=== PATIENT | female | born 1985 | race Caucasian/White ===

== ENCOUNTER 2018-04-19 20:22 | Emergency (ER) | END 2018-04-19 22:27 | disposition home or self-care (01) ==

== ENCOUNTER 2018-11-18 11:23 | Emergency (ER) | payer MEDICAID ==
[~2018-11-18] VITALS: Wt 90.0 kg
[~2018-11-18 11:23] MED LIST: IBUP-1542 PO; LORA-441 PO; MAG-19 PO; ONDA4TAB14 PO; PT DENIES; RANI150T35 PO
[2018-11-18 11:26] VITALS: BP 132/69; PULSE 93; RESP 18
[2018-11-18] MEDS ORDERED: FAMOTIDINE 20 MG TAB PO STA (11:59)
[2018-11-18] MEDS ORDERED: LIDOCAINE/MYLANTA 40 ML BTL PO STA (11:59)
--- NOTE | 2018-11-18 12:07 | ERD ---
ER Documentation Chief Complaint Chief Complaint AP X 5 DAYS HPI This is a 33-year-old female who presents to the emergency room with complaint of abdominal pain and throat pain times 5 days. Denies fever, no cough, no chest pain, no shortness of breath, no melena, no hematemesis. States pain is worse with eating and feels like the pain is up in her throat where she feels like there is something stuck in her throat. He currently has no pain and states "I do not have pain because I have not eaten anything today." Get some relief from the epigastric pain with drinking water. No history of the same, no surgical history. ROS All systems reviewed and are negative except as per history of present illness. Medications Home Meds Active Scripts Omeprazole* (Omeprazole*) 40 Mg Capsule.dr, 40 MG PO DAILY, #30 CAP Prov:TRUE ORTIZ NP 11/18/18 Ondansetron (Ondansetron Odt) 4 Mg Tab.rapdis, 4 MG PO Q6H PRN for NAUSEA AND/OR VOMITING, #20 TAB Prov:DIANA AWAD NP 04/19/18 Ranitidine Hcl* (Zantac*) 150 Mg Tablet, 150 MG PO BID PRN for EPIGASTRIC PAIN, #30 TAB Prov:DIANA AWAD NP 04/19/18 Magaldrate/Simethicone* (Mylanta*) 355 Ml Susp, 30 ML PO QID PRN for GASTROINTESTINAL UPSET, #1 BOTTLE Prov:DIANA AWAD NP 04/19/18 Lorazepam* (Ativan*) 0.5 Mg Tablet, 0.5 MG PO Q8, #7 TAB Prov:BERNADETTE ADAMS PA-C 07/09/16 Ibuprofen* (Motrin*) 600 Mg Tab, 600 MG PO Q6, #30 TAB Prov:BERNADETTE ADAMS PA-C 07/09/16 Reported Medications [Pt Denies] No Conflict Check 02/26/11 Allergies Allergies: Coded Allergies: Penicillins (Verified Allergy, Unknown, 02/26/11) PMhx/Soc History of Surgery: No Anesthesia Reaction: No Hx Neurological Disorder: No Hx Respiratory Disorders: No Hx Cardiac Disorders: No Hx Psychiatric Problems: No Hx Miscellaneous Medical Probl: Yes Hx Alcohol Use: Yes (occasional) Hx Substance Use: No Hx Tobacco Use: No FmHx Family History: No diabetes, No coronary disease, No other Physical Exam Vitals Vital Signs Date Temp Pulse Resp B/P (MAP) Pulse Ox O2 O2 Flow FiO2 Time Delivery Rate 11/18/18 98.1 93 18 132/69 99 11:26 (90) Physical Exam Const: No acute distress Head: Atraumatic Eyes: Normal Conjunctiva, PERRL ENT: Normal External Ears, Nose and Mouth. Pharynx pink, no lesions, no exudates. Neck: Full range of motion. No meningismus. Resp: Clear to auscultation bilaterally Cardio: Regular rate and rhythm, no murmurs Abd: Soft, non distended. Normal bowel sounds. +[place]rios Skin: No petechiae or rashes Back: No midline or flank tenderness Ext: No cyanosis, or edema Neur: Awake and alert Psych: Normal Mood and Affect Result Diagram: 11/18/18 1225 11/18/18 1225 Results 24 hrs Laboratory Tests Test 11/18/18 12:24 11/18/18 12:25 POC Beta HCG, Qualitative NEGATIVE White Blood Count 9.0 10^3/ul Red Blood Count 4.70 10^6/ul Hemoglobin 14.3 g/dl Hematocrit 42.7 % Mean Corpuscular Volume 90.9 fl Mean Corpuscular Hemoglobin 30.4 pg Mean Corpuscular Hemoglobin Concent 33.5 g/dl Red Cell Distribution Width 12.7 % Platelet Count 288 10^3/UL Mean Platelet Volume 9.9 fl Immature Granulocytes % 0.800 % Neutrophils % 66.7 % Lymphocytes % 24.7 % Monocytes % 6.1 % Eosinophils % 1.3 % Basophils % 0.4 % Nucleated Red Blood Cells % 0.0 /100WBC Immature Granulocytes # 0.070 10^3/ul Neutrophils # 6.0 10^3/ul Lymphocytes # 2.2 10^3/ul Monocytes # 0.6 10^3/ul Eosinophils # 0.1 10^3/ul Basophils # 0.0 10^3/ul Nucleated Red Blood Cells # 0.0 10^3/ul Urine Color YELLOW Urine Clarity CLEAR Urine pH 8.0 Urine Specific [place] 1.008 Urine Ketones NEGATIVE mg/dL Urine Nitrite NEGATIVE mg/dL Urine Bilirubin NEGATIVE mg/dL Urine Urobilinogen NEGATIVE mg/dL Urine Leukocyte Esterase NEGATIVE Eufemia/ul Urine Hemoglobin NEGATIVE mg/dL Urine Glucose NEGATIVE mg/dL Urine Total Protein NEGATIVE mg/dl Sodium Level 141 mmol/L Potassium Level 3.7 mmol/L Chloride Level 97 mmol/L Carbon Dioxide Level 34 mmol/L Anion Gap 10 Blood Urea Nitrogen 6 mg/dl Creatinine 0.48 mg/dl Est Glomerular Filtrat Rate mL/min > 60 mL/min Glucose Level 92 mg/dl Calcium Level 9.6 mg/dl Total Bilirubin 0.3 mg/dl Direct Bilirubin 0.00 mg/dl Indirect Bilirubin 0.3 mg/dl Aspartate Amino Transf (AST/SGOT) 21 IU/L Alanine Aminotransferase (ALT/SGPT) 23 IU/L Alkaline Phosphatase 51 IU/L Total Protein 7.8 g/dl Albumin 4.6 g/dl Globulin 3.20 g/dl Albumin/Globulin Ratio 1.43 Lipase 61 U/L Current Medications Medications Dose Sig/Kim Start Time Status Last (Trade) Ordered Route PRN Stop Time Admin Dose Reason Admin Famotidine 20 mg ONCE STAT 11/18/18 DC 11/18/18 (Pepcid) PO 11:59 11/18/18 12:15 12:04 40 ml ONCE STAT 11/18/18 DC 11/18/18 Miscellaneous PO 11:59 11/18/18 12:15 Medication 12:04 (Gi Cocktail (2)) Procedures/MDM This is a 33 yo female who presents to the ED with c/o RUQ and epigastric pain. ED COURSE: The patient was stable throughout ED course. I kept the patient informed of laboratory and diagnostic imaging results throughout the ED course. DIAGNOSTIC IMAGING: Read by radiologist. Unremarkable right upper quadrant abdomen ultrasound. Liver is normal in size, no hepatic lesions, gallbladder is normal with no stones or thickening, no fluid, no hydronephrosis or calculus. MEDICATIONS GIVEN: GI cocktail. Patient tolerated medication well with no adverse reactions. Patient reported improvement in pain. Patient symptoms consistent with GERD. Patient has been seen at this ED with similar symptoms, similar workup, similar result also with GERD diagnosis 6 months ago. Patient states a GI cocktail today has helped with the burning and full feeling in her throat. States that she did take the ranitidine last time she was diagnosed with GERD and it did help, she has not followed up with primary care provider. Patient has been provided with PPI today and encouraged to follow-up with primary care provider as it was instructed to her that further evaluation may be necessary and these tests are not provided in the ED. Patient verbalized understanding of the need for follow-up, need for additional testing such as for H. pylori or endoscopy, and appropriate diet for GERD symptoms. The patient presents with abdominal pain without definite explanation found on evaluation today. However, there are no signs of peritonitis or other life-thre atening or serious etiology. The patient appears stable for discharge and has been instructed to return immediately if the symptoms worsen in any way, or in 8-12 hours if not improved for re-evaluation. The patient has been instructed to return if the symptoms worsen or change in any way. Departure Diagnosis: Primary Impression: GERD (gastroesophageal reflux disease) Patient Instructions: Gastroesophageal Reflux Disease (GERD) Referrals: [facility] Additional Instructions: Thank you very much for allowing us to participate in your care. Your health and safety is our top priority at [facility]. Call your primary care doctor TOMORROW for an appointment during the next 2-4 days and bring all the information and medications prescribed. Have prescriptions filled and follow precisely the directions on the label. If the symptoms get worse and your provider is unavailable, return to the Emergency Department immediately. TRUE ORTIZ NP Nov 18, 2018 12:07
[2018-11-18] MEDS ORDERED: OMEP40CA6 PO (14:19)
== END 2018-11-18 14:39 | disposition home or self-care (01) ==
LOC: FTE 11:23
DX: K21.9 Gastro-esophageal reflux disease without esophagitis (principal)
CPT/HCPCS: 36415; 76705; 80053; 81003; 81025; 83690; 85025; Z7502; Z7610

== ENCOUNTER 2019-05-02 13:55 | Emergency (ER) | payer MEDICAID ==
[~2019-05-02] VITALS: Ht 157.5 cm; Wt 74.4 kg
[~2019-05-02 13:55] MED LIST changes: +MAGN400O19 PO; +OMEP40CA38 PO; +PSYL1040 PO; +RANI-535 PO; -RANI150T35 PO
[2019-05-02 14:19] VITALS: Ht 157.5 cm; Wt 74.4 kg
[2019-05-02] MEDS ORDERED: MAGNESIUM HYDROXIDE 30ML CUP PO ONE (15:00)
[2019-05-02 16:25] VITALS: BP 100/64; PULSE 82; RESP 20
== END 2019-05-02 16:25 | disposition home or self-care (01) ==
LOC: FTE 13:55
DX: K59.00 Constipation, unspecified (principal)
CPT/HCPCS: 74018; 81003; 81025; Z7502; Z7610